=== PATIENT | female | born 1995 | race Two or more races ===

== ENCOUNTER 2018-06-01 19:45 | Inpatient (IN) | payer OTHER ==
[~2018-06-01 19:45] MED LIST: BREAST PUMP MC; NOHOMEMEDS; PRENATAL TABLE1 EAC3 PO
[2018-06-01 20:10] VITALS: BP 134/82
[2018-06-01 20:20] VITALS: BP 129/81
[2018-06-01 20:34] VITALS: BP 125/82
[2018-06-01 20:39] LABS: BASOPHIL (%) 0.2 % (0-1); EOSINOPHIL (%) 0.5 % (0-5); EOSINOPHIL COUNT 0.1 K/uL (0-0.3); HEMATOCRIT 35.7 % (36.0-46.0); HEMOGLOBIN 12.7 G/DL (11.9-15.5); IMMATURE GRANULOCYTE (%) 0.7 % (0.0-0.7); LYMPHOCYTE (%) 24.5 % (15-42); LYMPHOCYTE COUNT 4.1 K/uL (1.0-2.8); MCHC 35.6 G/DL (30.0-36.0); MCV 87.1 FL (83-99); MONOCYTE (%) 4.9 % (3-12); MONOCYTE COUNT 0.8 K/uL (0-0.8); NEUTROPHIL (%) 69.2 % (45-76); NEUTROPHIL COUNT 11.5 K/uL (1.8-6.4); PLATELET COUNT 274 K/uL (156-360); RBC DIS.WIDTH-CV 13.4 % (11.8-14.6); RBC DIS.WIDTH-SD 42.4 % (39-53); WHITE BLOOD COUNT 16.7 K/uL (4.1-10.2)
[2018-06-01 20:49] VITALS: BP 122/71
[2018-06-01] MEDS ORDERED: IBUPROFEN800 MG PO (21:58)
[2018-06-01 22:05] VITALS: BP 123/88
[2018-06-01 23:16] VITALS: BP 131/72
[2018-06-02 22:51] VITALS: BP 108/61
[2018-06-03 07:45] VITALS: BP 108/68
== END 2018-06-03 16:38 | disposition home or self-care (01) | DRG 775 ==
LOC: LDRP-OP 19:45 → 2WEST 19:46
PROVIDERS: Midwife
PROC: 10E0XZZ Delivery of Products of Conception, External Approach (ICD-10-PCS; principal; 2018-06-01)
DX: O62.3 Precipitate labor (principal); O69.1XX0 Labor and delivery complicated by cord around neck, with compression, not applicable or unspecified; O99.824 Streptococcus B carrier state complicating childbirth; Z3A.37 37 weeks gestation of pregnancy; Z37.0 Single live birth
CPT/HCPCS: 85025